=== PATIENT | female | born 1985 | race Two or more races ===

== ENCOUNTER 2021-12-02 03:14 | Emergency (ER) | payer MEDICAID ==
[~2021-12-02] VITALS: Ht 152.4 cm; Wt 68.0 kg
[2021-12-02 04:24] VITALS: BP 144/93
== END 2021-12-02 05:38 | disposition left against medical advice (07) ==
LOC: ER 03:14
DX: M79.89 Other specified soft tissue disorders (principal); Z53.21 Procedure and treatment not carried out due to patient leaving prior to being seen by health care provider

== ENCOUNTER 2022-09-23 20:29 | Emergency (ER) | payer MEDICAID ==
[~2022-09-23] VITALS: Ht 152.4 cm; Wt 65.7 kg
[2022-09-23 20:50] VITALS: BP 153/92
== END 2022-09-23 21:01 | disposition left against medical advice (07) ==
LOC: EDBD 20:29 → ER 20:32
DX: M54.2 Cervicalgia (principal); M25.561 Pain in right knee; M25.531 Pain in right wrist; Z53.21 Procedure and treatment not carried out due to patient leaving prior to being seen by health care provider; V89.2XXA Person injured in unspecified motor-vehicle accident, traffic, initial encounter; Y93.89 Activity, other specified; Y92.89 Other specified places as the place of occurrence of the external cause; Y99.8 Other external cause status